=== PATIENT | male | born 1980 | race Two or more races ===

== ENCOUNTER 2019-10-03 13:16 | Outpatient (CLI) | payer OTHER ==
[2019-10-03] MEDS ORDERED: PHENAZOPYRIDIN100 MG ORAL (15:27)
[2019-10-03] MEDS ORDERED: ALFUZOSIN HCL10 MG PO (15:27)
--- NOTE | 2019-10-03 22:00 | Consultation ---
DATE OF CONSULTATION: 10/03/2019 CONSULTING PHYSICIAN: Gunner Aquino MD. CHIEF COMPLAINT: Abdominal pain. HISTORY OF PRESENT ILLNESS: This is a 39-year-old male without any significant past medical history except for multiple cystitis and urinary tract infection, apparently who had 2 courses of antibiotics back to back and since then, he has been having some change in bowel habits having looking stools, bloating, gas, and nonspecific abdominal pain. PAST MEDICAL HISTORY: 1. Multiple urinary tract infection. 2. BPH. PAST SURGICAL HISTORY: None. MEDICATIONS: Please see medication reconciliation list. FAMILY HISTORY: No family history of GI malignancies. SOCIAL HISTORY: The patient denies any tobacco, alcohol, or IV drug abuse. ALLERGIES: No known drug allergies. REVIEW OF SYSTEMS: A 10-point review of systems was performed and pertinent positives in the HPI. PHYSICAL EXAMINATION: GENERAL: A well-developed male, in no acute distress. HEENT: Normocephalic, atraumatic. Sclerae are anicteric. NECK: Supple. No evidence of obvious lymphadenopathy. CARDIOVASCULAR: Regular rhythm. Plus S1, S2. LUNGS: Clear to auscultation bilaterally. ABDOMEN: Positive bowel sounds. Soft and nontender. No rebound. No guarding. No peritoneal sign. EXTREMITIES: No cyanosis. No clubbing. No edema. ASSESSMENT AND PLAN: This is a 39-year-old male with post-antibiotic symptoms suspicious for SIBO. Plan will be to start him on Align 1 tablet p.o. daily for two months and the patient is to return after 2 months to see if his symptoms are better or not. He was also given MiraLax 17 g p.o. daily. The patient was told to come back earlier if he has worsening abdominal pain, rectal bleeding, weight loss, or any alarming sign and symptoms. Gunner Aquino M.D. DR: Benjamin JOB#: [id number] CC:
== END 2019-10-03 15:16 | disposition home or self-care (01) ==
LOC: PAN 13:16
DX: R10.9 Unspecified abdominal pain (principal); R14.0 Abdominal distension (gaseous)
CPT/HCPCS: G0463

== ENCOUNTER 2020-03-24 10:48 | Outpatient (CLI) | payer OTHER ==
[~2020-03-24 10:48] MED LIST: ALFUZOSIN HCL10 MG PO; PHENAZOPYRIDIN100 MG ORAL
[2020-03-24 11:33] VITALS: BP 133/100
--- NOTE | 2020-04-08 14:01 | General Progress Note ---
Subjective ROS Limited/Unobtainable: Yes Allergies: Coded Allergies: No Known Allergies (Unverified , 10/03/19) Objective General Appearance: alert EENT: normal ENT inspection Neck: supple Cardiovascular: normal rate Respiratory/Chest: decreased breath sounds Abdomen: normal bowel sounds, non tender, soft Extremities: non-tender Assessment/Plan Assessment/Plan: GERD ppi plan EGD Gunner Aquino MD Apr 08, 2020 14:01
== END 2020-04-02 12:48 | disposition home or self-care (01) ==
LOC: PAN 10:48
DX: K21.9 Gastro-esophageal reflux disease without esophagitis (principal)
CPT/HCPCS: 99212